=== PATIENT | female | born 1990 | race Caucasian/White ===

== ENCOUNTER 2018-02-13 19:59 | Emergency (ER) | payer OTHER, MEDICAID ==
[2018-02-13 22:13] LABS: URINE PH (Dip) POC 5.5 (5.0-8.5)
[2018-02-13 22:13] LABS: URINE BLOOD (Dip) POC 3+ (NEGATIVE); URINE GLUCOSE (Dip) POC Negative (NEGATIVE); URINE KETONES (Dip) POC 1+ (NEGATIVE); URINE LEUKOCYTE EST (Dip) POC 3+ (NEGATIVE); URINE NITRITE (Dip) POC Positive (NEGATIVE); URINE TOTAL PROTEIN POC 3+ (NEGATIVE)
[2018-02-13] MEDS: CEFTRIAXONE 1 GM INJ IM (22:53)
[2018-02-13] MEDS ORDERED: ONDANSETRON (ODT) 4 MG TAB ODT (23:03)
[2018-02-13] MEDS: ONDANSETRON (ODT) 4 MG TAB ODT (23:05)
== END 2018-02-13 23:25 | disposition home or self-care (01) ==
LOC: FTE 19:59
DX: N39.0 Urinary tract infection, site not specified (principal)
CPT/HCPCS: 81003; 96372; 99284-25

== ENCOUNTER 2018-04-21 23:16 | Emergency (ER) | payer OTHER ==
[2018-04-22 00:47] LABS: URINE BLOOD (Dip) POC 3+ (NEGATIVE); URINE GLUCOSE (Dip) POC Negative (NEGATIVE); URINE KETONES (Dip) POC Negative (NEGATIVE); URINE LEUKOCYTE EST (Dip) POC 1+ (NEGATIVE); URINE NITRITE (Dip) POC Negative (NEGATIVE); URINE TOTAL PROTEIN POC 2+ (NEGATIVE)
== END 2018-04-22 01:25 | disposition home or self-care (01) ==
LOC: E/R 23:16
DX: N39.0 Urinary tract infection, site not specified (principal)
CPT/HCPCS: 81003; 81025; 99283